=== PATIENT | male | born 1965 | race Caucasian/White ===

== ENCOUNTER 2016-10-13 21:04 | Emergency (ER) | payer SELFPAY ==
--- NOTE | 2016-10-13 23:50 | ER Document Report ---
HPI - HPI Patient complains to provider of: anxiety Onset: [facility] Onset/Duration: Gradual Pain Level: Denies Context: 51 yo homeless male called taxi to bring him to ER due to his severe anxiety like he wants to run, due to too many people there tonight. [facility]. Feels like people are plotting to kill me, claustrophobic, felt anxious, felt stuck. He is requesting something to knock him out and put him in dark room. Off lithium for 3 weeks. Psych dx: bipolar. Has seen [facility] . Returned to [place] September 04, was staying with a friend. Kids 13, 16 live in [place], he doesn't want them to know. Ex lives here too. He feels like he is coming apart, can't keep his thoughts together. Paranoia, he states he sees things, talks with aliens. Pt was asleep with blanket over his head. He states he can keep it together if he had his [place], 300mg three times per day. Ex meth user 6 months ago, and ex. etoh. Pt is willing to stay and get psych eval in the morning. Associated Symptoms: None Exacerbated by: Denies Relieved by: Denies Similar symptoms previously: No Recently seen / treated by doctor: No - ROS ROS below otherwise negative: Yes Systems Reviewed and Negative: Yes All other systems reviewed and negative - DERM Skin Color: Normal Past Medical History - General Information source: Patient - Social History Smoking Status: Current Every Day Smoker Frequency of alcohol use: None Drug Abuse: None Lives with: Homeless Family History: Other - schizophrenia Renal/ Medical History: Denies: Hx Peritoneal Dialysis Psychiatric Medical History: Reports: Hx Bipolar Disorder Vertical Provider Document - CONSTITUTIONAL Exam Limitations: No Limitations - RESPIRATORY O2 Sat by Pulse Oximetry: 98 Course - Vital Signs Vital signs: Temp Pulse Resp BP Pulse Ox 98.3 F 68 147/83 H 98 10/13/16 22:01 10/13/16 22:01 10/13/16 22:01 10/13/16 22:01 Discharge - Discharge Instructions: Anxiety ([facility])
[2016-10-14] MEDS ORDERED: HYDROXYZINE PAMOATE 50 MG CAPSULE PO ONE (00:20)
--- NOTE | 2016-10-14 00:28 | ER Document Report ---
ED Psych Disorder / Suicide <KATIEJOSE C - Last Filed: 10/14/16 14:21> - General Mode of Arrival: Ambulatory Information source: Patient <SABARADHAKAMARI - Last Filed: 10/15/16 17:08> - General Chief Complaint: Anxiety Stated Complaint: POSSIBLE ANXIETY ATTACK Time Seen by Provider: 10/13/16 23:48 Notes: 51 yo homeless male called taxi to bring him to ER due to his severe anxiety like he wants to run, due to too many people there tonight. Has been at long-term for 2 nights. Feels like people are plotting to kill me, claustrophobic, felt anxious, felt stuck. He is requesting something to knock him out and put him in dark room. Off lithium for 3 weeks. Psych dx: bipolar. Has seen [facility] . Returned to [place] September 04, was staying with a friend. Kids 13, 16 live in [place], he doesn't want them to know. Ex lives here too. He feels like he is coming apart, can't keep his thoughts together. Paranoia, he states he sees things, talks with aliens. Pt was asleep with blanket over his head. He states he can keep it together if he had his [place], 300mg three times per day. Ex meth user 6 months ago, and ex. etoh. Pt is willing to stay and get psych eval in the morning. (KAMARI MARTINS) - Related Data Allergies/Adverse Reactions: No Known Allergies Allergy (Unverified 10/13/16 22:00) Past Medical History - General Information source: Patient - Social History Smoking Status: Current Every Day Smoker Frequency of alcohol use: None Drug Abuse: None Lives with: Homeless Family History: Other - schizophrenia Renal/ Medical History: Denies: Hx Peritoneal Dialysis Psychiatric Medical History: Reports: Hx Bipolar Disorder <KAMARI MARTINS - Last Filed: 10/15/16 17:08> Review of Systems - Review of Systems Constitutional: No symptoms reported EENT: No symptoms reported Cardiovascular: No symptoms reported Respiratory: No symptoms reported Gastrointestinal: No symptoms reported Genitourinary: No symptoms reported Male Genitourinary: No symptoms reported Musculoskeletal: No symptoms reported Skin: No symptoms reported Hematologic/Lymphatic: No symptoms reported Neurological/Psychological: See HPI <KAMARI MARTINS - Last Filed: 10/15/16 17:08> Physical Exam - Vital signs Interpretation: Normal - General General appearance: Appears well, Alert In distress: None - HEENT Head: Normocephalic, Atraumatic Eyes: Normal Conjunctiva: Normal Pupils: PERRL Pharynx: Normal - Respiratory Respiratory status: No respiratory distress Chest status: Nontender Breath sounds: Normal Chest palpation: Normal - Cardiovascular Rhythm: Regular Heart sounds: Normal auscultation Murmur: No - Abdominal Inspection: Normal Distension: No distension Bowel sounds: Normal Tenderness: Nontender. No: Tender Organomegaly: No organomegaly - Back Back: Normal, Nontender - Extremities General upper extremity: Normal inspection, Nontender, Normal color, Normal ROM , Normal temperature General lower extremity: Normal inspection, Nontender, Normal color, Normal ROM , Normal temperature, Normal weight bearing. No: Patricia's sign - Neurological Neuro grossly intact: Yes Cognition: Normal Orientation: AAOx4 Waldo Coma Scale Eye Opening: Spontaneous Ada Coma Scale Verbal: Oriented Ada Coma Scale Motor: Obeys Commands Waldo Coma Scale Total: 15 Speech: Normal Motor strength normal: LUE, RUE, LLE, RLE Sensory: Normal - Psychological Associated symptoms: Anxious, Flat affect, Irritable - Skin Skin Temperature: Warm Skin Moisture: Dry Skin Color: Normal Skin irregularity: negative: Rash <KAMARI MARTINS - Last Filed: 10/15/16 17:08> - Vital signs Vitals: Temp Pulse BP Pulse Ox 98.3 F 68 147/83 H 98 10/13/16 22:01 10/13/16 22:01 10/13/16 22:01 10/13/16 22:01 Course - Laboratory Result Diagrams: 10/14/16 01:00 10/14/16 01:00 <JOSE C WILSON - Last Filed: 10/14/16 14:21> - Laboratory Result Diagrams: 10/14/16 01:00 10/14/16 01:00 <KAMARI MARTINS - Last Filed: 10/15/16 17:08> - Re-evaluation Re-evalutation: 10/14/16 01:42 EKG NSR, read by dr. ray. 10/14/16 05:24 DARCYD here because large crystal found in pts pants during inventory was sent to [facility] and it tested positive for cocaine. I asked that Stephen do not speak with the pt about it until psych consult completed this morning. 10/14/16 06:19 labs and drug tox negative 10/15/16 17:08 (KAMARI MARTINS) - Vital Signs Vital signs: Temp Pulse Resp BP Pulse Ox 98.1 F 57 L 16 108/71 97 10/14/16 14:35 10/14/16 14:35 10/14/16 14:35 10/14/16 14:35 10/14/16 14:35 - Laboratory Laboratory results interpreted by me: 10/14/16 01:00 Potassium 3.5 L Chloride 108 H Salicylates < 1.0 L Acetaminophen < 10 L Discharge <JOSE C WILSON - Last Filed: 10/14/16 14:21> <KAMARI MARTINS - Last Filed: 10/15/16 17:08> - Discharge Clinical Impression: Anxiety, Bipolar 1 disorder Condition: Stable Disposition: HOME, SELF-CARE Instructions: Anxiety ([facility]) Additional Instructions: Anxiety The physician feels that some of your health problems are being caused by anxiety. Anxiety affects your health in many ways. Anxiety alone can cause palpitations, sweats, chest pains, abdominal pains, shortness of breath, and headaches. It contributes to ulcer disease, high blood pressure, irritable bowel syndrome, and has been shown to cause flare-ups of many other diseases. Anxiety is not a simple disorder to treat. If the anxiety is due to recent life stresses, you may simply need time to "work through" the changes. If the anxiety is due to an underlying unhappiness with yourself or due to psychiatric disturbance, professional help will be needed. Your physician can refer you for further help if needed. Anti-anxiety medication is occasionally given if the stress is acute or if you are having trouble sleeping. Chronic or frequent use of these medications is not a good idea because the body becomes reliant on it, preventing you from dealing with life's normal stresses. Bipolar Disorder Bipolar disorder is also called manic-depressive disorder. Depression alternates with brain hyperactivity called ming. Each phase lasts from several days to a few weeks. We don't know exactly what causes bipolar disorder , but it's treatable. During the "manic phase," you may feel elated and energetic. You may have racing thoughts, rapid speech, increased activity, and grandiose ideas. During this time, you may not realize how poor your judgement is. Inappropriate spending, drug abuse, excessive alcohol use, marriage problems, and irresponsible sexual behavior are common during the manic phase. During the "depressive phase," you might feel depressed, guilty, worthless , fatigued, and unable to concentrate. You might have thoughts of suicide. Good treatments are available for bipolar disorder. [place] is a classic drug for bipolar disorder, and is still often useful. If the manic phase is very mild, an antidepressant alone can be prescribed. If the manic phase is very severe, an antipsychotic medicine (such as Haldol) may be needed. The treatment must be matched to your symptoms, so it's important to work closely with your psychiatric care provider. Contact your physician, the hospital emergency center, crisis line, or your counsellor if you are losing control or having self-destructive thoughts. Suicidal Ideation Suicidal ideation is a common medical term for thoughts about suicide, which may be as detailed as a formulated plan, without the suicidal act itself. Although most people who undergo suicidal ideation do not commit suicide, some go on to make suicide attempts. The range of suicidal ideation varies greatly from fleeting to detailed planning, role playing, and unsuccessful attempts. Please follow up with [facility]. Please discontinue any illegal drug use/abuse. Please return if your symptoms worsen. Referrals: [facility] [Provider Group] - Follow up as needed
[2016-10-14 01:22] LABS: ABSOLUTE BASOPHILS # (AUTO) 0.1 10^3/uL (0.0-0.2); ABSOLUTE EOSINOPHILS # (AUTO) 0.2 10^3/uL (0.0-0.6); ABSOLUTE MONOCYTES (AUTO) 0.5 10^3/uL (0.1-1.4); ABSOLUTE NEUT (AUTO) 5.7 10^3/uL (1.7-8.2); BASOPHILS % (AUTO) 0.7 % (0-2); EOSINOPHILS % (AUTO) 1.6 % (0-6); HEMOGLOBIN 15.5 g/dL (13.5-17.0); HGB HCT DIFFERENCE 0.5; LYMPHOCYTES % (AUTO) 31.8 % (13-45); MEAN CORPUSCULAR HEMOGLOBIN 30.3 pg (27.0-33.4); MEAN CORPUSCULAR HGB CONC 33.8 g/dL (32.0-36.0); MEAN CORPUSCULAR VOLUME 90 fl (80-97); MONOCYTES % (AUTO) 5.5 % (3-13); RED BLOOD COUNT 5.13 10^6/uL (4.35-5.55); RED CELL DISTRIBUTION WIDTH 12.7 % (11.5-14.0); SEGMENTED NEUTROPHILS % (AUTO) 60.4 % (42-78); WHITE BLOOD COUNT 9.4 10^3/uL (4.0-10.5)
[2016-10-14 01:32] LABS: ALANINE AMINOTRANSFERASE 32 U/L (21-72); ALBUMIN 4.1 g/dL (3.5-5.0); ALKALINE PHOSPHATASE 56 U/L (38-126); ANION GAP 12 (5-19); ASPARTATE AMINO TRANSFERASE 28 U/L (17-59); BILIRUBIN,DIRECT 0.1 mg/dL (0.0-0.4); BILIRUBIN,TOTAL 1.3 mg/dL (0.2-1.3); BLOOD UREA NITROGEN 12 mg/dL (7-20); CALCIUM 9.5 mg/dL (8.4-10.2); CARBON DIOXIDE 23 mmol/L (22-30); CHLORIDE 108 mmol/L (98-107); CREATININE RESULT 1.05 mg/dL (0.52-1.25); GLUCOSE 94 mg/dL (75-110); POTASSIUM 3.5 mmol/L (3.6-5.0); SODIUM 143.1 mmol/L (137-145); TOTAL PROTEIN 6.7 g/dL (6.3-8.2)
[2016-10-14 01:34] LABS: ALCOHOL < 10 mg/dL (NONE DETECTED)
[2016-10-14 01:38] LABS: URINE BARBITURATES SCREEN NEGATIVE; URINE METHADONE SCREEN NEGATIVE; URINE OPIATES LOW NEGATIVE; URINE PHENCYCLIDINE SCREEN NEGATIVE
[2016-10-14 01:51] LABS: APPEARANCE,URINE SLIGHTLY-CLOUDY; BILIRUBIN,URINE NEGATIVE (NEGATIVE); GLUCOSE, URINE NEGATIVE (NEGATIVE); KETONES,URINE NEGATIVE (NEGATIVE); LEUKOCYTE ESTERASE,URINE NEGATIVE (NEGATIVE); NITRITE,URINE NEGATIVE (NEGATIVE); PROTEIN,URINE NEGATIVE (NEGATIVE); URINE SPECIFIC GRAVITY 1.015; UROBILINOGEN,URINE NEGATIVE mg/dL (<2.0)
--- NOTE | 2016-10-14 10:59 | ER Document Report ---
Doctor's Note Notes: 10/14/16 10:58 Rounds: Chart reviewed and patient interview. Patient has been out of his lithium for some time. Admitted to the emergency department last evening for anxiety and paranoia. Patient says he slept well because he was given some medications to help him sleep. All labs essentially normal. All vital signs essentially normal. Blood pressure 147/83. Patient appears to be medically stable for transfer or discharge. Flaquita Bajwa MD
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
--- NOTE | 2016-10-14 14:24 | EKG REPORT ---
SEVERITY:- NORMAL ECG - SINUS RHYTHM : Confirmed by: Ashwin Ron 14-Oct-2016 14:24:09
[2016-10-14 15:26] VITALS: BP 108/71
== END 2016-10-14 14:45 | disposition home or self-care (01) ==
LOC: ER 21:04
DX: F31.9 Bipolar disorder, unspecified (principal); F41.9 Anxiety disorder, unspecified; F17.200 Nicotine dependence, unspecified, uncomplicated; F22 Delusional disorders; F14.90 Cocaine use, unspecified, uncomplicated; Z59.0 Homelessness
CPT/HCPCS: 36415; 80053; 80307; 81001; 85025; 93005; 93010; 99284